=== PATIENT | female | born 1975 | race African-American/Black ===

== ENCOUNTER 2017-03-10 18:05 | Inpatient (IN) | payer OTHER ==
[~2017-03-10] VITALS: Ht 175.3 cm; Wt 84.8 kg
[~2017-03-10 18:05] MED LIST: AZAT50TA18; HYDR200T; PRED5ORA
[2017-03-11] MEDS ORDERED: KETOROLAC 30MG/ML VIAL IV STA (04:41)
[2017-03-11] MEDS ORDERED: AZITHROMYCIN 500 MG in DEXT 5% WATER 250 ML IV SCH (04:45)
[2017-03-11] MEDS ORDERED: CEFTRIAXONE 2 G PREMIX 50 ML IV ONE (04:45)
[2017-03-11 05:51] LABS: BASOPHILS % 0.4 % (0.0-2.0); EOSINOPHILS % 1.3 % (0.0-5.0); HEMATOCRIT. 33.5 % (36.0-48.0); HEMOGLOBIN. 10.8 g/dL (12.0-16.0); MEAN CORPUSCULAR HEMOGLOBIN 30.6 pg (28.0-32.0); MEAN CORPUSCULAR VOLUME 95.1 fL (81.0-99.0); MEAN PLATELET VOLUME 8.7 fl (7.4-10.4); MONOCYTES % 9.2 % (2.0-8.0); NEUTROPHILS % 66.1 % (40.0-76.0); PLATELET 278 x1000/uL (130-400); RED BLOOD CELL COUNT 3.52 mill/uL (4.2-5.4); RED CELL DISTRIBUTION WIDTH 14.7 % (11.6-14.6)
[2017-03-11 05:54] LABS: INR 1.1
[2017-03-11 06:00] LABS: CARBON DIOXIDE 30 mEq/L (21-32); CHLORIDE 104 mEq/L (98-107)
[2017-03-11] MEDS ORDERED: OSELTAMIVIR 75MG CAPSULE PO SCH (09:00)
[2017-03-11] MEDS ORDERED: CLONIDINE 0.1MG TABLET PO PRN (12:30)
[2017-03-11] MEDS ORDERED: ACETAMINOPHEN 325MG TABLET PO PRN (12:30)
[2017-03-11] MEDS ORDERED: IPRATROPIUM/ALBUTEROL 0.5-3(2.5)MG/3ML NEB INH PRN (12:30)
[2017-03-11] MEDS ORDERED: ONDANSETRON HCL 4MG/2ML VIAL IV PRN (12:30)
[2017-03-11] MEDS ORDERED: MAGNESIUM/ALUMINUM HYDROXIDE/SIMETHICONE 30ML UDC PO PRN (12:30)
[2017-03-11 13:00] VITALS: BP 136/89
[2017-03-11] MEDS: HYDROCODONE/ACETAMINOPHEN 5/325MG TABLET PO PRN ×2 (13:45→20:23)
[2017-03-11] MEDS ORDERED: IPRATROPIUM/ALBUTEROL 0.5-3(2.5)MG/3ML NEB HHN PRN (14:30)
[2017-03-11] MEDS: ENOXAPARIN 40MG/0.4ML SYR SUBCUT SCH (15:16)
[2017-03-11 15:19] LABS: CREATINE KINASE MB FRACTION 0.6 ng/mL (0.5-3.6); TROPONIN I 0.02 ng/mL (0.00-0.04)
[2017-03-11 15:35] LABS: CARBON DIOXIDE 33 mEq/L (21-32); CHLORIDE 102 mEq/L (98-107)
[2017-03-11 16:00] VITALS: BP 135/80
[2017-03-11] MEDS: AZATHIOPRINE 50MG TABLET PO SCH (18:25)
[2017-03-11 20:05] VITALS: BP 101/62
[2017-03-11] MEDS: BUDESONIDE 0.5MG/2ML NEB HHN SCH (20:11)
[2017-03-11] MEDS: IPRATROPIUM/ALBUTEROL 0.5-3(2.5)MG/3ML NEB INH SCH ×2 (20:12→23:35)
[2017-03-11] MEDS: OSELTAMIVIR 75MG CAPSULE PO SCH (20:19)
[2017-03-11] MEDS: GUAIFENESIN 600MG ER TABLET PO SCH (20:19)
[2017-03-12 00:22] VITALS: BP 102/62
[2017-03-12 00:24] LABS: CREATINE KINASE 105 IU/L (26-192); CREATINE KINASE MB FRACTION < 0.5 ng/mL (0.5-3.6); TROPONIN I < 0.02 ng/mL (0.00-0.04)
[2017-03-12] MEDS: IPRATROPIUM/ALBUTEROL 0.5-3(2.5)MG/3ML NEB INH SCH ×5 (03:36→19:49)
[2017-03-12 04:00] VITALS: BP 108/67
[2017-03-12] MEDS ORDERED: CEFTRIAXONE 1 G PREMIX 50 ML IV SCH (06:00)
[2017-03-12 08:00] VITALS: BP 116/74
[2017-03-12] MEDS: BUDESONIDE 0.5MG/2ML NEB HHN SCH ×2 (08:05→19:51)
[2017-03-12] MEDS: PREDNISONE 5MG TABLET PO SCH (08:12)
[2017-03-12] MEDS: GUAIFENESIN 600MG ER TABLET PO SCH ×2 (08:12→20:36)
[2017-03-12] MEDS: OSELTAMIVIR 75MG CAPSULE PO SCH ×2 (08:12→20:36)
[2017-03-12] MEDS: AZITHROMYCIN 500 MG TABLET PO SCH (08:12)
[2017-03-12] MEDS: HYDROCODONE/ACETAMINOPHEN 5/325MG TABLET PO PRN ×2 (08:12→20:38)
[2017-03-12] MEDS: AZATHIOPRINE 50MG TABLET PO SCH (08:12)
[2017-03-12] MEDS: HYDROXYCHLOROQUINE SULFATE 200MG TABLET PO SCH (08:12)
[2017-03-12 09:06] LABS: BASOPHILS % 0.3 % (0.0-2.0); EOSINOPHILS % 1.6 % (0.0-5.0); HEMATOCRIT. 31.1 % (36.0-48.0); HEMOGLOBIN. 10.1 g/dL (12.0-16.0); LYMPHOCYTES % 23.5 % (20.0-50.0); MEAN CORPUSCULAR HEMOGLOBIN 30.6 pg (28.0-32.0); MEAN CORPUSCULAR VOLUME 94.4 fL (81.0-99.0); MEAN PLATELET VOLUME 8.9 fl (7.4-10.4); MONOCYTES % 10.9 % (2.0-8.0); NEUTROPHILS % 63.7 % (40.0-76.0); PLATELET 297 x1000/uL (130-400); RED CELL DISTRIBUTION WIDTH 14.8 % (11.6-14.6)
[2017-03-12 12:00] VITALS: BP 98/59
[2017-03-12] MEDS: ENOXAPARIN 40MG/0.4ML SYR SUBCUT SCH (13:32)
[2017-03-12 14:36] LABS: CLARITY URINE CLEAR (CLEAR); COLOR URINE YELLOW (YELLOW); KETONES URINE NEGATIVE (NEGATIVE); LEUKOCYTE ESTERASE URINE NEGATIVE (NEGATIVE); NITRITE URINE NEGATIVE (NEGATIVE); OCCULT BLOOD URINE NEGATIVE (NEGATIVE); PROTEIN URINE NEGATIVE (NEGATIVE); UROBILINOGEN URINE 0.2 E.U./dL (0.2-1.0)
[2017-03-12 15:04] LABS: *AMPHETAMINES SCREEN URINE NEGATIVE (NEGATIVE); *BARBITURATES SCREEN URINE NEGATIVE (NEGATIVE); *BENZODIAZEPINES SCREEN URINE NEGATIVE (NEGATIVE); *COCAINE SCREEN URINE NEGATIVE (NEGATIVE); CANNABINOID URINE SCREEN NEGATIVE (NEGATIVE); METHADONE URINE SCREEN NEGATIVE (NEGATIVE); PHENCYCLIDINE URINE SCREEN NEGATIVE (NEGATIVE)
[2017-03-12 15:07] LABS: OPIATES URINE SCREEN PRESUMTIVE POSITIVE (NEGATIVE)
[2017-03-12 16:00] VITALS: BP 97/51
[2017-03-12 20:00] VITALS: BP 108/70
[2017-03-13 00:05] VITALS: BP 109/70
[2017-03-13] MEDS: IPRATROPIUM/ALBUTEROL 0.5-3(2.5)MG/3ML NEB INH SCH ×5 (00:39→15:12)
[2017-03-13 04:20] VITALS: BP 102/61
[2017-03-13] MEDS ORDERED: CEFTRIAXONE 1 G PREMIX 50 ML IV SCH (06:00)
[2017-03-13 06:29] LABS: BASOPHILS % 0.2 % (0.0-2.0); HEMATOCRIT. 27.7 % (36.0-48.0); HEMOGLOBIN. 9.1 g/dL (12.0-16.0); LYMPHOCYTES % 30.3 % (20.0-50.0); MEAN CORPUSCULAR HEMOGLOBIN 31.2 pg (28.0-32.0); MEAN CORPUSCULAR VOLUME 94.6 fL (81.0-99.0); MEAN PLATELET VOLUME 8.4 fl (7.4-10.4); MONOCYTES % 13.1 % (2.0-8.0); NEUTROPHILS % 54.4 % (40.0-76.0); PLATELET 274 x1000/uL (130-400); RED BLOOD CELL COUNT 2.93 mill/uL (4.2-5.4); RED CELL DISTRIBUTION WIDTH 14.9 % (11.6-14.6)
[2017-03-13 08:00] VITALS: BP 94/61
[2017-03-13 08:02] LABS: CARBON DIOXIDE 29 mEq/L (21-32); CHLORIDE 103 mEq/L (98-107)
[2017-03-13] MEDS: BUDESONIDE 0.5MG/2ML NEB HHN SCH (08:02)
[2017-03-13] MEDS: AZATHIOPRINE 50MG TABLET PO SCH (09:11)
[2017-03-13] MEDS: HYDROXYCHLOROQUINE SULFATE 200MG TABLET PO SCH (09:11)
[2017-03-13] MEDS: PREDNISONE 5MG TABLET PO SCH (09:11)
[2017-03-13] MEDS: OSELTAMIVIR 75MG CAPSULE PO SCH (09:11)
[2017-03-13] MEDS: AZITHROMYCIN 500 MG TABLET PO SCH (09:12)
[2017-03-13] MEDS: GUAIFENESIN 600MG ER TABLET PO SCH (09:12)
[2017-03-13] MEDS ORDERED: POTASSIUM CHLORIDE 20MEQ TABLET SR PO NR (11:15)
[2017-03-13 12:00] VITALS: BP 110/64
[2017-03-13] MEDS: ENOXAPARIN 40MG/0.4ML SYR SUBCUT SCH (14:32)
[2017-03-13] MEDS: HYDROCODONE/ACETAMINOPHEN 5/325MG TABLET PO PRN (14:36)
[2017-03-13 16:00] VITALS: BP 107/62
[2017-03-13 17:28] VITALS: BP 107/62
== END 2017-03-13 18:00 | disposition home or self-care (01) | DRG 720 ==
LOC: ER 18:05 → 7WST 03-11 05:30 → EDBEDREQTM 03-11 05:37 → EDBEDREQ 03-11 05:37 → ENRESERV 03-11 08:25 → CANRESERV 03-11 08:25 → ENRESERV 03-11 11:25
PROVIDERS: ADMIT Internal Medicine; ATTEND Internal Medicine
DX: A41.9 Sepsis, unspecified organism (principal); J96.01 Acute respiratory failure with hypoxia; J10.00 Influenza due to other identified influenza virus with unspecified type of pneumonia; J84.9 Interstitial pulmonary disease, unspecified; E46 Unspecified protein-calorie malnutrition; M32.9 Systemic lupus erythematosus, unspecified; J44.0 Chronic obstructive pulmonary disease with (acute) lower respiratory infection; J44.1 Chronic obstructive pulmonary disease with (acute) exacerbation; E87.6 Hypokalemia; D63.8 Anemia in other chronic diseases classified elsewhere; Z83.3 Family history of diabetes mellitus; Z87.891 Personal history of nicotine dependence; Z68.27 Body mass index [BMI] 27.0-27.9, adult; Z79.899 Other long term (current) drug therapy
CPT/HCPCS: 36415; 71045; 80048; 80053; 80061; 80305; 81003; 82550; 82553; 83605; 83735; 83880; 84443; 84484; 85025; 85610; 87040; 87086; 87804; 93005; 93306; 93970; 94640; 96365; 96366; 96368; 96375; 99285; J0456; J0696; J1650; J1885; J7050; J7060; J7500; J7512; J7620; J7626

== ENCOUNTER 2017-08-05 12:36 | Emergency (ER) | payer MEDICAID, OTHER ==
[~2017-08-05] VITALS: Ht 165.1 cm; Wt 70.0 kg
[~2017-08-05 12:36] MED LIST changes: -HYDR200T; +HYDR200T80
[2017-08-05] MEDS ORDERED: SODIUM CHLORIDE 0.9% 1,000 ML IV ONE (13:36)
[2017-08-05 14:30] LABS: CHLORIDE 100 mEq/L (98-107)
[2017-08-05 14:32] LABS: BASOPHILS % 0.7 % (0.0-2.0); EOSINOPHILS % 2.1 % (0.0-5.0); HEMATOCRIT. 33.1 % (36.0-48.0); LYMPHOCYTES % 19.8 % (20.0-50.0); MEAN CORPUSCULAR HEMOGLOBIN 33.4 pg (28.0-32.0); MEAN PLATELET VOLUME 8.8 fl (7.4-10.4); MONOCYTES % 12.7 % (2.0-8.0); NEUTROPHILS % 64.7 % (40.0-76.0); PLATELET 241 x1000/uL (130-400); RED BLOOD CELL COUNT 3.31 mill/uL (4.2-5.4); RED CELL DISTRIBUTION WIDTH 14.8 % (11.6-14.6)
[2017-08-05 14:41] LABS: HCG SCREEN NEGATIVE
[2017-08-05 15:53] LABS: CLARITY URINE CLEAR (CLEAR); COLOR URINE YELLOW (YELLOW); KETONES URINE NEGATIVE (NEGATIVE); LEUKOCYTE ESTERASE URINE 1+ (NEGATIVE); NITRITE URINE NEGATIVE (NEGATIVE); OCCULT BLOOD URINE 3+ (NEGATIVE); PH URINE 6.5 (4.5-8.0); PROTEIN URINE TRACE (NEGATIVE); SPECIFIC GRAVITY URINE 1.016 (1.005-1.030); UROBILINOGEN URINE 0.2 E.U./dL (0.2-1.0)
[2017-08-05 16:13] VITALS: BP 127/88
== END 2017-08-05 16:56 | disposition home or self-care (01) ==
LOC: ER 12:36
DX: N93.8 Other specified abnormal uterine and vaginal bleeding (principal); R10.30 Lower abdominal pain, unspecified; J44.9 Chronic obstructive pulmonary disease, unspecified; M32.9 Systemic lupus erythematosus, unspecified
CPT/HCPCS: 36415; 76830; 76856; 80053; 81003; 84703; 85025; 99285; J7030; Z7610

== ENCOUNTER 2018-01-18 22:39 | Emergency (ER) | payer OTHER ==
[~2018-01-18] VITALS: Ht 175.3 cm; Wt 79.4 kg
[2018-01-19] MEDS ORDERED: IBUPROFEN 600MG TABLET PO STA (01:05)
[2018-01-19 03:24] VITALS: BP 131/83
== END 2018-01-19 03:26 | disposition home or self-care (01) ==
LOC: ER 22:39
DX: S00.83XA Contusion of other part of head, initial encounter (principal); L03.211 Cellulitis of face; H11.31 Conjunctival hemorrhage, right eye; Y04.2XXA Assault by strike against or bumped into by another person, initial encounter; Y93.89 Activity, other specified; Y92.29 Other specified public building as the place of occurrence of the external cause
CPT/HCPCS: 70486; 81025; 99284